=== PATIENT | female | born 1955 | race Caucasian/White ===

== ENCOUNTER 2021-01-15 17:48 | Inpatient (IN) | payer MEDICARE, OTHER ==
[2021-01-15] MEDS ORDERED: Sodium Chloride 0.9% 10 ML Syringe FLUSH PRN (18:15)
[2021-01-15] MEDS ORDERED: Sodium Chloride 0.9% 2.5 ML Syringe FLUSH PRN (18:15)
[2021-01-15] MEDS ORDERED: Sodium Chloride 0.9% 1,000 ML IV ONE (18:15)
--- NOTE | 2021-01-15 18:26 | EDM.PDOC ---
<Rhett Earl - Last Filed: 01/15/21 18:26> ED HPI GENERAL MEDICAL PROBLEM - General Chief Complaint: Respiratory Problem Stated Complaint: POSSIBLE COVID Time Seen by Provider: 01/15/21 18:07 - Related Data Allergies Allergy/AdvReac Type Severity Reaction Status Date / Time No Known Allergies Allergy Verified 09/13/15 09:13 Departure - Departure Disposition: Refer to Observation Clinical Impression: COVID-19 virus infection, Hypoxia, Hypocalcemia - Discharge Information Referrals: Tj Garcia MD [Primary Care Provider] - Forms: ED Department Discharge <Cecily Kaur - Last Filed: 01/15/21 20:09> ED HPI GENERAL MEDICAL PROBLEM - General Source of Information: Reports: Patient, Family History Limitations: Reports: No Limitations - History of Present Illness INITIAL COMMENTS - FREE TEXT/NARRATIVE: HISTORY AND PHYSICAL: History of present illness: Patient is a 65-year-old female presenting to the ED with her daughter with complaints of fatigue and intermittent cough that has been present x3 days. Patient states that she has a home SPO2 monitor that read an SPO2 of 80% which prompted her to come to the ED. Patient states that for 3 days she has experienced muscle aches, fatigue, decreased appetite, malaise, fever/chills, dizziness, dry throat and mouth, and intermittent cough. Patient states she has taken multiple doses of ibuprofen for her fever and body aches with mild reduction of symptoms. Patient denies any other effective palliative measures or any other provocative measures. Patient states her fever got up to 104.0F at home but states "I do not trust my thermometer at home because it is old." Patient does report one ill contact she last saw 1 week ago today who had similar upper respiratory symptoms. Patient denies chest pain or shortness of breath. Denies headache, neck stiff ness, change in vision, syncope, or near syncope. Denies nausea, vomiting, abdominal pain, diarrhea, constipation, or dysuria. Has not noted any blood in urine or stool. Patient has been drinking appropriately. Review of systems: As per history of present illness and below otherwise all systems reviewed and negative. Past medical history: As per history of present illness and as reviewed below otherwise noncontributory. Surgical history: As per history of present illness and as reviewed below otherwise noncontributory. Social history: See social history for further information Family history: As per history of present illness and as reviewed below otherwise noncontributory. Physical exam: General: Patient is alert, oriented, and in no acute distress. Patient lying comfortably on exam table. Hypoxic 88% on RA, otherwise vitals stable and reviewed by me. HEENT: Atraumatic, normocephalic, pupils equal and reactive bilaterally, negative for conjunctival pallor or scleral icterus, mucous membranes moist, TMs normal bilaterally, throat clear, neck supple, nontender, trachea midline. No drooling or trismus noted. No meningeal signs. No hot potato voice noted. Lungs: Clear to auscultation, breath sounds equal bilaterally, chest nontender. Heart: S1S2, regular rate and rhythm without overt murmur Abdomen: Soft, nondistended, nontender. Negative for masses or hepatosplenomegaly. Negative for costovertebral tenderness. Pelvis: Stable nontender. Genitourinary: Deferred. Rectal: Deferred. Skin: Intact, warm, dry. No lesions or rashes noted. Extremities: Atraumatic, negative for cords or calf pain. Neurovascular unremarkable. Neuro: Awake, alert, oriented. Cranial nerves II through XII unremarkable. Cerebellum unremarkable. Motor and sensory unremarkable throughout. Exam nonfocal. Notes: On arrival to the ED, patient is breathing comfortably with oxygen is 88% on room air. Patient placed on 2 L nasal cannula and satting 94%. Corrected calcium for albumin 7.9 mg/dL (low). I did call and speak to the hospitalist on-call, Dr. García, and thoroughly discussed patient's case. Will admit to observation documents her on telemetry. Voices understanding and is agreeable to plan of care. Denies any further questions or concerns at this time. Diagnostics: EKG, CBC, CMP, UA, lactate, troponin, CXR, COVID/Flu Therapeutics: NS, 2LO2 via NC, Decadron, remdesivir, calcium gluconate Impression: COVID-19 viral infection Hypoxia Hypocalcemia Plan: Admit to observation to Dr. Bonilla on telemetry Definitive disposition and diagnosis as appropriate pending reevaluation and review of above. bodyaches Pain Score (Numeric/FACES): 6 ED ROS GENERAL - Review of Systems Review Of Systems: Comprehensive ROS is negative, except as noted in HPI. ED EXAM, GENERAL - Physical Exam Exam: See Below (see dictation) Course - Vital Signs Last Recorded V/S: Last Vital Signs Temp 100.6 F 01/15/21 17:53 Pulse 78 01/15/21 19:43 Resp 16 01/15/21 19:43 BP 155/78 H 01/15/21 19:43 Pulse Ox 87 L 01/15/21 19:43 - Orders/Labs/Meds Orders: Active Orders 24 hr Category Date Time Status Admission Status [Patient Status] [ADT] Stat ADT 01/15/21 19:57 Active EKG Documentation Completion [RC] STAT Care 01/15/21 18:16 Active BILIRUBIN DIRECT [CHEM] Stat Lab 01/15/21 18:52 Results COMPREHENSIVE METABOLIC PN,CMP [CHEM] Stat Lab 01/15/21 18:52 Results CULTURE BLOOD [BC] Stat Lab 01/15/21 18:19 Received CULTURE BLOOD [BC] Stat Lab 01/15/21 18:52 Received CULTURE URINE [RM] Stat Lab 01/15/21 18:02 Received LIPASE [CHEM] Stat Lab 01/15/21 18:52 Results TROPONIN I [CHEM] Stat Lab 01/15/21 18:52 Results Sodium Chloride 0.9% [Saline Flush] Med 01/15/21 18:15 Active 10 ml FLUSH ASDIRECTED PRN Sodium Chloride 0.9% [Saline Flush] Med 01/15/21 18:15 Active 2.5 ml FLUSH ASDIRECTED PRN Blood Culture x2 Reflex Set [OM.PC] Stat Oth 01/15/21 18:37 Ordered Saline Lock Insert [OM.PC] Stat Oth 01/15/21 18:15 Ordered Medication Orders Sodium Chloride (Sodium Chloride 0.9% 2.5 Ml Syringe) 2.5 ml FLUSH ASDIRECTED PRN PRN Reason: Keep Vein Open Last Admin: 01/15/21 18:58 Dose: 2.5 ml Documented by: LAZARO Sodium Chloride (Sodium Chloride 0.9% 10 Ml Syringe) 10 ml FLUSH ASDIRECTED PRN PRN Reason: Keep Vein Open Last Admin: 01/15/21 18:58 Dose: 10 ml Documented by: LAZARO Labs: Laboratory Tests 01/15/21 01/15/21 01/15/21 Range/Units 18:02 18:19 18:19 WBC 3.55 L (4.0-11.0) K/uL RBC 4.70 (4.30-5.90) M/uL Hgb 14.1 (12.0-16.0) g/dL Hct 41.3 (36.0-46.0) % MCV 87.9 (80.0-98.0) fL MCH 30.0 (27.0-32.0) pg MCHC 34.1 (31.0-37.0) g/dL RDW Std Deviation 46.7 (28.0-62.0) fl RDW Coeff of Ian 14 (11.0-15.0) % Plt Count 177 (150-400) K/uL MPV 11.30 (7.40-12.00) fL Neut % (Auto) 63.6 (48.0-80.0) % Lymph % (Auto) 20.6 (16.0-40.0) % [place] % (Auto) 14.9 (0.0-15.0) % Eos % (Auto) 0.6 (0.0-7.0) % Baso % (Auto) 0.3 (0.0-1.5) % Neut # (Auto) 2.3 (1.4-5.7) K/uL Lymph # (Auto) 0.7 (0.6-2.4) K/uL [place] # (Auto) 0.5 (0.0-0.8) K/uL Eos # (Auto) 0.0 (0.0-0.7) K/uL Baso # (Auto) 0.0 (0.0-0.1) K/uL Nucleated RBC % 0.0 /100WBC Nucleated RBCs # 0 K/uL Lactate 0.8 (0.20-2.00) mmol/L Sodium (136-145) mmol/L Potassium (3.5-5.1) mmol/L Chloride (98-107) mmol/L Carbon Dioxide (21.0-32.0) mmol/L BUN (7.0-18.0) mg/dL Creatinine (0.6-1.0) mg/dL Est Cr Clr Drug Dosing mL/min Estimated GFR (MDRD) ml/min Glucose (74-106) mg/dL Calcium (8.5-10.1) mg/dL Magnesium (1.8-2.4) mg/dL Total Bilirubin (0.2-1.0) mg/dL AST (15-37) IU/L ALT (14-63) IU/L Alkaline Phosphatase (46-116) U/L Troponin I (0.000-0.056) ng/mL Total Protein (6.4-8.2) g/dL Albumin (3.4-5.0) g/dL Globulin (2.6-4.0) g/dL Albumin/Globulin Ratio (0.9-1.6) Lipase (73-393) U/L Urine Color YELLOW Urine Appearance SLT CLOUDY Urine pH 5.5 (5.0-8.0) Ur Specific [place] 1.020 (1.001-1.035) Urine Protein TRACE H (NEGATIVE) mg/dL Urine Glucose (UA) NEGATIVE (NEGATIVE) mg/dL Urine Ketones NEGATIVE (NEGATIVE) mg/dL Urine Occult Blood MODERATE H (NEGATIVE) Urine Nitrite NEGATIVE (NEGATIVE) Urine Bilirubin NEGATIVE (NEGATIVE) Urine Urobilinogen 0.2 (<2.0) EU/dL Ur Leukocyte Esterase TRACE H (NEGATIVE) Urine RBC 2-4 (0-2/HPF) Urine WBC 1-3 (0-5/HPF) Ur Epithelial Cells MANY (NONE-FEW) Urine Bacteria RARE (NEGATIVE) Influenza Type A RNA (NEGATIVE) Influenza Type B RNA (NEGATIVE) SARS-CoV-2 RNA (JANET) (NEGATIVE) 01/15/21 01/15/21 01/15/21 Range/Units 18:52 18:52 18:53 WBC (4.0-11.0) K/uL RBC (4.30-5.90) M/uL Hgb (12.0-16.0) g/dL Hct (36.0-46.0) % MCV (80.0-98.0) fL MCH (27.0-32.0) pg MCHC (31.0-37.0) g/dL RDW Std Deviation (28.0-62.0) fl RDW Coeff of Ian (11.0-15.0) % Plt Count (150-400) K/uL MPV (7.40-12.00) fL Neut % (Auto) (48.0-80.0) % Lymph % (Auto) (16.0-40.0) % [place] % (Auto) (0.0-15.0) % Eos % (Auto) (0.0-7.0) % Baso % (Auto) (0.0-1.5) % Neut # (Auto) (1.4-5.7) K/uL Lymph # (Auto) (0.6-2.4) K/uL [place] # (Auto) (0.0-0.8) K/uL Eos # (Auto) (0.0-0.7) K/uL Baso # (Auto) (0.0-0.1) K/uL Nucleated RBC % /100WBC Nucleated RBCs # K/uL Lactate (0.20-2.00) mmol/L Sodium 137 (136-145) mmol/L Potassium 3.4 L (3.5-5.1) mmol/L Chloride 100 (98-107) mmol/L Carbon Dioxide 27.0 (21.0-32.0) mmol/L BUN 16 (7.0-18.0) mg/dL Creatinine 0.7 (0.6-1.0) mg/dL Est Cr Clr Drug Dosing 78.67 mL/min Estimated GFR (MDRD) > 60.0 ml/min Glucose 110 H (74-106) mg/dL Calcium 7.7 L (8.5-10.1) mg/dL Magnesium 1.4 L (1.8-2.4) mg/dL Total Bilirubin 0.3 (0.2-1.0) mg/dL AST 22 (15-37) IU/L ALT 31 (14-63) IU/L Alkaline Phosphatase 70 (46-116) U/L Troponin I < 0.050 (0.000-0.056) ng/mL Total Protein 6.8 (6.4-8.2) g/dL Albumin 3.1 L (3.4-5.0) g/dL Globulin 3.7 (2.6-4.0) g/dL Albumin/Globulin Ratio 0.8 L (0.9-1.6) Lipase 107 (73-393) U/L Urine Color Urine Appearance Urine pH (5.0-8.0) Ur Specific [place] (1.001-1.035) Urine Protein (NEGATIVE) mg/dL Urine Glucose (UA) (NEGATIVE) mg/dL Urine Ketones (NEGATIVE) mg/dL Urine Occult Blood (NEGATIVE) Urine Nitrite (NEGATIVE) Urine Bilirubin (NEGATIVE) Urine Urobilinogen (<2.0) EU/dL Ur Leukocyte Esterase (NEGATIVE) Urine RBC (0-2/HPF) Urine WBC (0-5/HPF) Ur Epithelial Cells (NONE-FEW) Urine Bacteria (NEGATIVE) Influenza Type A RNA NEGATIVE (NEGATIVE) Influenza Type B RNA NEGATIVE (NEGATIVE) SARS-CoV-2 RNA (JANET) POSITIVE H (NEGATIVE) Meds: Medications Generic Name Dose Route Start Last Admin Trade Name Freq PRN Reason Stop Dose Admin Sodium Chloride 2.5 ml 01/15/21 18:15 01/15/21 18:58 Sodium Chloride 0.9% 2.5 Ml Syringe FLUSH 2.5 ml ASDIRECTED PRN Administration Keep Vein Open Sodium Chloride 10 ml 01/15/21 18:15 01/15/21 18:58 Sodium Chloride 0.9% 10 Ml Syringe FLUSH 10 ml ASDIRECTED PRN Administration Keep Vein Open Discontinued Medications Generic Name Dose Route Start Last Admin Trade Name Freq PRN Reason Stop Dose Admin Acetaminophen 650 mg 01/15/21 18:52 01/15/21 19:34 Acetaminophen 325 Mg Tab PO 01/15/21 18:53 650 mg NOW ONE Administration Calcium Gluconate 1 gm 01/15/21 19:41 Calcium Gluconate 10% 1 Gm/10 Ml Sdv IVPUSH 01/15/21 19:42 ONETIME ONE Dexamethasone 6 mg 01/15/21 19:42 Dexamethasone 10 Mg/Ml Sdv IVPUSH 01/15/21 19:43 ONETIME ONE Sodium Chloride 1,000 mls @ 999 mls/hr 01/15/21 18:15 01/15/21 18:56 Normal Saline IV 01/15/21 19:15 999 mls/hr BOLUS ONE Administration Remdesivir 200 mg/ Sodium 250 mls @ 250 mls/hr 01/15/21 19:53 Chloride IV 01/15/21 19:54 ONETIME ONE Ketorolac Tromethamine 30 mg 01/15/21 18:49 01/15/21 19:35 Ketorolac 30 Mg/Ml Sdv IVPUSH 01/15/21 18:50 30 mg ONETIME ONE Administration Departure - Departure Time of Disposition: 20:07 Sepsis Event Note (ED) - Focused Exam Vital Signs: Vital Signs Temp Pulse Resp BP Pulse Ox 01/15/21 19:43 78 16 155/78 H 87 L 01/15/21 17:53 100.6 F 96 22 H 159/99 H 92 L - My Orders Last 24 Hours: My Active Orders 01/15/21 18:02 CULTURE URINE [RM] Stat 01/15/21 18:15 Sodium Chloride 0.9% [Saline Flush] 10 ml FLUSH ASDIRECTED PRN Sodium Chloride 0.9% [Saline Flush] 2.5 ml FLUSH ASDIRECTED PRN Saline Lock Insert [OM.PC] Stat 01/15/21 18:16 EKG Documentation Completion [RC] STAT 01/15/21 18:19 CULTURE BLOOD [BC] Stat 01/15/21 18:37 Blood Culture x2 Reflex Set [OM.PC] Stat 01/15/21 18:52 BILIRUBIN DIRECT [CHEM] Stat COMPREHENSIVE METABOLIC PN,CMP [CHEM] Stat CULTURE BLOOD [BC] Stat LIPASE [CHEM] Stat TROPONIN I [CHEM] Stat 01/15/21 19:57 Admission Status [Patient Status] [ADT] Stat - Assessment/Plan Last 24 Hours: My Active Orders 01/15/21 18:02 CULTURE URINE [RM] Stat 01/15/21 18:15 Sodium Chloride 0.9% [Saline Flush] 10 ml FLUSH ASDIRECTED PRN Sodium Chloride 0.9% [Saline Flush] 2.5 ml FLUSH ASDIRECTED PRN Saline Lock Insert [OM.PC] Stat 01/15/21 18:16 EKG Documentation Completion [RC] STAT 01/15/21 18:19 CULTURE BLOOD [BC] Stat 01/15/21 18:37 Blood Culture x2 Reflex Set [OM.PC] Stat 01/15/21 18:52 BILIRUBIN DIRECT [CHEM] Stat COMPREHENSIVE METABOLIC PN,CMP [CHEM] Stat CULTURE BLOOD [BC] Stat LIPASE [CHEM] Stat TROPONIN I [CHEM] Stat 01/15/21 19:57 Admission Status [Patient Status] [ADT] Stat
--- NOTE | 2021-01-15 18:29 | PCM.SN.2 ---
- Free Text/Narrative Note: EG done at 1759 shows sinus rhythm with heart rate 91 axis is 36 QRS shows are wave does not appear until after V2 and V1 and V2 have a Q's. There is some ST changes in the lateral leads. That there is no prior for comparison. 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
[2021-01-15] MEDS ORDERED: Ketorolac 30 MG/ML SDV IVPUSH ONE (18:49)
[2021-01-15] MEDS ORDERED: Acetaminophen 325 MG Tab PO ONE (18:52)
--- NOTE | 2021-01-15 18:59 | CR ---
INDICATION: Wheezing. Chest pain. TECHNIQUE: AP portable chest x-ray. COMPARISON: Chest x-ray 09/09/2015. FINDINGS: Mild opacity and/or interstitial prominence in the right mid lung is new. Cannot exclude early developing inflammatory process in this location. Lungs are otherwise clear. Mild elevation right hemidiaphragm. Heart size is upper limits of normal. Postsurgical changes right shoulder. Chest otherwise negative. Dictated by Krishna Dutton MD @ Jan 15 2021 6:57PM Signed by Dr. Krishna Dutton @ Jan 15 2021 6:57PM
[2021-01-15 19:23] LABS: BLOOD UREA NITROGEN,BUN 16 mg/dL (7.0-18.0); CHLORIDE,CL 100 mmol/L (98-107); GLUCOSE RANDOM 110 mg/dL (74-106); LIPASE 107 U/L (73-393); POTASSIUM,K 3.4 mmol/L (3.5-5.1); SODIUM,NA 137 mmol/L (136-145)
[2021-01-15 19:37] LABS: CORONAVIRUS COVID-19 NAA POSITIVE (NEGATIVE); INFLUENZA A NAA NEGATIVE (NEGATIVE); INFLUENZA B NAA NEGATIVE (NEGATIVE)
[2021-01-15] MEDS ORDERED: Calcium Gluconate 10% 1 GM/10 ML SDV IVPUSH ONE (19:41)
[2021-01-15] MEDS ORDERED: Dexamethasone 10 MG/ML SDV IVPUSH ONE (19:42)
[2021-01-15] MEDS ORDERED: REMDESIVIR 200 MG in Sodium Chloride 0.9% 250 ML IV ONE (19:53)
[2021-01-15] MEDS ORDERED: Acetaminophen 325 MG Tab PO PRN (20:27)
[2021-01-15] MEDS ORDERED: Ondansetron 4 MG/2 ML SDV IVPUSH PRN (20:27)
--- NOTE | 2021-01-15 22:11 | PCM.HP.2 ---
H&P History of Present Illness - General Date of Service: 01/15/21 Admit Problem/Dx: Admission Diagnosis/Problem Admission Diagnosis/Problem Hypoxia - History of Present Illness Initial Comments - Free Text/Narative: Patient is a 65-year-old female with PMH of HTN, fibromuscular dysplasia of renal vessels, presenting to the ED with her daughter with complaints of fatigue and intermittent cough that has been present x3 days. Patient states that her daughter checked her oxygen levels at home with pulse oxygen as she was unable to get out of bed today , her oxygen saturation was 80% which prompted her to come to the ED. Patient states that for 3 days she has experienced muscle aches, fatigue, decreased appetite, malaise, fever/chills, dizziness, dry throat and mouth, and intermittent cough. Patient states she has taken multiple doses of ibuprofen for her fever and body aches with mild reduction of symptoms. States she did spike a fever at home. Patient states she thinks she contracted COVID from her daughter who has lost her sense of smell and taste. Patient denies chest pain or shortness of breath. Denies headache, neck stiff ness, change in vision, syncope, or near syncope. Denies nausea, vomiting, abdominal pain, diarrhea, constipation, or dysuria. Has not noted any blood in urine or stool. Patient has been drinking appropriately. States she missed taking her meds today. In the ER patient was hypoxixic in 80s so was started on NC 2Ls. CXR showed mild opacity in right middle lung, labs showed some electrolyte disturbances, EKG unremarkable for ACS, showed some old ischemic changes, Troponin negative, COVID was positive as well. Patient was admitted for further management. bodyaches Pain Score (Numeric/FACES): 6 - Related Data Allergies/Adverse Reactions: Allergies Allergy/AdvReac Type Severity Reaction Status Date / Time No Known Allergies Allergy Verified 01/15/21 21:41 Home Medications: Home Meds Metoprolol Tartrate 100 mg PO BID 01/15/21 [History] PARoxetine HCL [Paroxetine HCl] 10 mg PO DAILY 01/15/21 [History] Zolpidem Tartrate 10 mg PO BEDTIME 01/15/21 [History] amLODIPine Besylate [Amlodipine Besylate] 5 mg PO DAILY 01/15/21 [History] hydroCHLOROthiazide [Hydrochlorothiazide] 1 tab PO DAILY 01/15/21 [History] Past Medical History Cardiovascular History: Reports: Hypertension MEDICAL PHYSIOLOGIST History: Reports: - Past Surgical History Cardiovascular Surgical History: Reports: None Social & Family History - Family History Family Medical History: No Pertinent Family History - Tobacco Use Tobacco Use Status *Q: Never Tobacco User Second Hand Smoke Exposure: No - Caffeine Use Caffeine Use: Reports: None - Recreational Drug Use Recreational Drug Use: No H&P Review of Systems - Review of Systems: Review Of Systems: See Below General: Reports: Fever, Chills, Malaise Pulmonary: Denies: Shortness of Breath, Wheezing Cardiovascular: Denies: Chest Pain, Palpitations Gastrointestinal: Reports: Anorexia. Denies: Abdominal Pain, Black Stool, Bloody Stool, Constipation, Diarrhea, Distension Genitourinary: Denies: Dysuria, Frequency, Burning Musculoskeletal: Denies: Neck Pain, Shoulder Pain, Arm Pain Skin: Denies: Cyanosis, Jaundice, Mottled Psychiatric: Denies: Confusion, Depression, Mood Lability Exam - Exam Exam: See Below - Vital Signs Vital Signs: Last Vital Signs Temp 36.1 C 01/15/21 22:00 Pulse 81 01/15/21 22:00 Resp 18 01/15/21 22:00 BP 145/78 H 01/15/21 22:00 Pulse Ox 94 L 01/15/21 22:00 Weight: 110 kg - Exam Quality Assessment: Supplemental Oxygen General: Alert, Oriented, Cooperative, Mild Distress Neck: Supple, Trachea Midline Lungs: Normal Respiratory Effort, Decreased Breath Sounds, Crackles Cardiovascular: Regular Rate, Regular Rhythm, Normal S1, Normal S2 - Patient Data Lab Results Last 24 hrs: Laboratory Results - last 24 hr 01/15/21 01/15/21 01/15/21 Range/Units 18:02 18:19 18:19 WBC 3.55 L (4.0-11.0) K/uL RBC 4.70 (4.30-5.90) M/uL Hgb 14.1 (12.0-16.0) g/dL Hct 41.3 (36.0-46.0) % MCV 87.9 (80.0-98.0) fL MCH 30.0 (27.0-32.0) pg MCHC 34.1 (31.0-37.0) g/dL RDW Std Deviation 46.7 (28.0-62.0) fl RDW Coeff of Ian 14 (11.0-15.0) % Plt Count 177 (150-400) K/uL MPV 11.30 (7.40-12.00) fL Neut % (Auto) 63.6 (48.0-80.0) % Lymph % (Auto) 20.6 (16.0-40.0) % [place] % (Auto) 14.9 (0.0-15.0) % Eos % (Auto) 0.6 (0.0-7.0) % Baso % (Auto) 0.3 (0.0-1.5) % Neut # (Auto) 2.3 (1.4-5.7) K/uL Lymph # (Auto) 0.7 (0.6-2.4) K/uL [place] # (Auto) 0.5 (0.0-0.8) K/uL Eos # (Auto) 0.0 (0.0-0.7) K/uL Baso # (Auto) 0.0 (0.0-0.1) K/uL Nucleated RBC % 0.0 /100WBC Nucleated RBCs # 0 K/uL Lactate 0.8 (0.20-2.00) mmol/L Sodium (136-145) mmol/L Potassium (3.5-5.1) mmol/L Chloride (98-107) mmol/L Carbon Dioxide (21.0-32.0) mmol/L BUN (7.0-18.0) mg/dL Creatinine (0.6-1.0) mg/dL Est Cr Clr Drug Dosing mL/min Estimated GFR (MDRD) ml/min Glucose (74-106) mg/dL Calcium (8.5-10.1) mg/dL Magnesium (1.8-2.4) mg/dL Total Bilirubin (0.2-1.0) mg/dL Direct Bilirubin (0.0-0.5) mg/dL AST (15-37) IU/L ALT (14-63) IU/L Alkaline Phosphatase (46-116) U/L Troponin I (0.000-0.056) ng/mL Total Protein (6.4-8.2) g/dL Albumin (3.4-5.0) g/dL Globulin (2.6-4.0) g/dL Albumin/Globulin Ratio (0.9-1.6) Lipase (73-393) U/L Urine Color YELLOW Urine Appearance SLT CLOUDY Urine pH 5.5 (5.0-8.0) Ur Specific [place] 1.020 (1.001-1.035) Urine Protein TRACE H (NEGATIVE) mg/dL Urine Glucose (UA) NEGATIVE (NEGATIVE) mg/dL Urine Ketones NEGATIVE (NEGATIVE) mg/dL Urine Occult Blood MODERATE H (NEGATIVE) Urine Nitrite NEGATIVE (NEGATIVE) Urine Bilirubin NEGATIVE (NEGATIVE) Urine Urobilinogen 0.2 (<2.0) EU/dL Ur Leukocyte Esterase TRACE H (NEGATIVE) Urine RBC 2-4 (0-2/HPF) Urine WBC 1-3 (0-5/HPF) Ur Epithelial Cells MANY (NONE-FEW) Urine Bacteria RARE (NEGATIVE) Influenza Type A RNA (NEGATIVE) Influenza Type B RNA (NEGATIVE) SARS-CoV-2 RNA (JANET) (NEGATIVE) 01/15/21 01/15/21 01/15/21 Range/Units 18:52 18:52 18:53 WBC (4.0-11.0) K/uL RBC (4.30-5.90) M/uL Hgb (12.0-16.0) g/dL Hct (36.0-46.0) % MCV (80.0-98.0) fL MCH (27.0-32.0) pg MCHC (31.0-37.0) g/dL RDW Std Deviation (28.0-62.0) fl RDW Coeff of Ian (11.0-15.0) % Plt Count (150-400) K/uL MPV (7.40-12.00) fL Neut % (Auto) (48.0-80.0) % Lymph % (Auto) (16.0-40.0) % [place] % (Auto) (0.0-15.0) % Eos % (Auto) (0.0-7.0) % Baso % (Auto) (0.0-1.5) % Neut # (Auto) (1.4-5.7) K/uL Lymph # (Auto) (0.6-2.4) K/uL [place] # (Auto) (0.0-0.8) K/uL Eos # (Auto) (0.0-0.7) K/uL Baso # (Auto) (0.0-0.1) K/uL Nucleated RBC % /100WBC Nucleated RBCs # K/uL Lactate (0.20-2.00) mmol/L Sodium 137 (136-145) mmol/L Potassium 3.4 L (3.5-5.1) mmol/L Chloride 100 (98-107) mmol/L Carbon Dioxide 27.0 (21.0-32.0) mmol/L BUN 16 (7.0-18.0) mg/dL Creatinine 0.7 (0.6-1.0) mg/dL Est Cr Clr Drug Dosing 78.67 mL/min Estimated GFR (MDRD) > 60.0 ml/min Glucose 110 H (74-106) mg/dL Calcium 7.7 L (8.5-10.1) mg/dL Magnesium 1.4 L (1.8-2.4) mg/dL Total Bilirubin 0.3 (0.2-1.0) mg/dL Direct Bilirubin 0.10 (0.0-0.5) mg/dL AST 22 (15-37) IU/L ALT 31 (14-63) IU/L Alkaline Phosphatase 70 (46-116) U/L Troponin I < 0.050 (0.000-0.056) ng/mL Total Protein 6.8 (6.4-8.2) g/dL Albumin 3.1 L (3.4-5.0) g/dL Globulin 3.7 (2.6-4.0) g/dL Albumin/Globulin Ratio 0.8 L (0.9-1.6) Lipase 107 (73-393) U/L Urine Color Urine Appearance Urine pH (5.0-8.0) Ur Specific [place] (1.001-1.035) Urine Protein (NEGATIVE) mg/dL Urine Glucose (UA) (NEGATIVE) mg/dL Urine Ketones (NEGATIVE) mg/dL Urine Occult Blood (NEGATIVE) Urine Nitrite (NEGATIVE) Urine Bilirubin (NEGATIVE) Urine Urobilinogen (<2.0) EU/dL Ur Leukocyte Esterase (NEGATIVE) Urine RBC (0-2/HPF) Urine WBC (0-5/HPF) Ur Epithelial Cells (NONE-FEW) Urine Bacteria (NEGATIVE) Influenza Type A RNA NEGATIVE (NEGATIVE) Influenza Type B RNA NEGATIVE (NEGATIVE) SARS-CoV-2 RNA (JANET) POSITIVE H (NEGATIVE) Result Diagrams: 01/15/21 18:19 01/15/21 18:52 Sepsis Event Note - Evaluation Sepsis Screening Result: No Definite Risk - Focused Exam Vital Signs: Vital Signs Temp Pulse Resp BP BP Pulse Ox 01/15/21 22:00 36.1 C 81 18 145/78 H 94 L 01/15/21 19:43 78 16 155/78 H 87 L 01/15/21 17:53 38.1 C 96 22 H 159/99 H 92 L - Problem List (1) Acute hypoxemic respiratory failure due to COVID-19 SNOMED Code(s): 887778419 ICD Code: U07.1 - COVID-19; J96.01 - ACUTE RESPIRATORY FAILURE WITH HYPOXIA Status: Acute Current Visit: Yes (2) HTN (hypertension) SNOMED Code(s): 38525944 ICD Code: I10 - ESSENTIAL (PRIMARY) HYPERTENSION Status: Acute Current Visit: Yes (3) Hypokalemia SNOMED Code(s): 85346557 ICD Code: E87.6 - HYPOKALEMIA Status: Acute Current Visit: Yes (4) Hypomagnesemia SNOMED Code(s): 040515527 ICD Code: E83.42 - HYPOMAGNESEMIA Status: Acute Current Visit: Yes Problem List Initiated/Reviewed/Updated: Yes Orders Last 24hrs: Active Orders 24 hr Category Date Time Status Admission Status [Patient Status] [ADT] Stat ADT 01/15/21 19:57 Active Ambulate [RC] ASDIRECTED Care 01/15/21 20:27 Active Antiembolic Devices [RC] PER UNIT ROUTINE Care 01/15/21 20:29 Active EKG Documentation Completion [RC] STAT Care 01/15/21 18:16 Active Oxygen Therapy [RC] PRN Care 01/15/21 20:27 Active Pulse Oximetry [RC] CONTINUOUS Care 01/15/21 20:28 Active RT Post Treatment Assessment [RC] Click to Edit Care 01/15/21 20:30 Active RT Pre-Treatment Assessment [RC] Click to Edit Care 01/15/21 20:30 Active VTE/DVT Education [RC] PER UNIT ROUTINE Care 01/15/21 20:27 Active Vital Signs [RC] Q4H Care 01/15/21 20:27 Active Clear Liquid Diet [DIET] Diet 01/15/21 Dinner Active COMPREHENSIVE METABOLIC PN,CMP [CHEM] AM Lab 01/16/21 05:11 Ordered COMPREHENSIVE METABOLIC PN,CMP [CHEM] AM Lab 01/17/21 05:11 Ordered COMPREHENSIVE METABOLIC PN,CMP [CHEM] AM Lab 01/18/21 05:11 Ordered COMPREHENSIVE METABOLIC PN,CMP [CHEM] AM Lab 01/19/21 05:11 Ordered CULTURE BLOOD [BC] Stat Lab 01/15/21 18:19 Received CULTURE BLOOD [BC] Stat Lab 01/15/21 18:52 Received CULTURE URINE [RM] Stat Lab 01/15/21 18:02 Received Acetaminophen [TylenoL] Med 01/15/21 20:27 Active 650 mg PO Q4H PRN Albuterol/Ipratropium [Combivent Respimat] Med 01/15/21 20:30 Active See Dose Instructions INH Q4H Enoxaparin [Lovenox] Med 01/15/21 20:30 Active 40 mg SUBCUT Q24H Levofloxacin/Dextrose 5%-Water [Levaquin in D5W 750 MG/ Med 01/15/21 20:45 Active 150 ML] 750 mg Premix Bag 1 bag IV Q24H Ondansetron [Zofran] Med 01/15/21 20:27 Active 4 mg IVPUSH Q4H PRN Pantoprazole [ProTONIX IV] 40 mg Med 01/16/21 09:00 Active Sodium Chloride 0.9% [Normal Saline] 10 ml IV DAILY Remdesivir 100 mg Med 01/16/21 09:00 Active Sodium Chloride 0.9% [Normal Saline] 100 ml IV Q24H Sodium Chloride 0.9% [Saline Flush] Med 01/15/21 18:15 Active 10 ml FLUSH ASDIRECTED PRN Sodium Chloride 0.9% [Saline Flush] Med 01/15/21 18:15 Active 2.5 ml FLUSH ASDIRECTED PRN dexAMETHasone Med 01/16/21 09:00 Active 6 mg PO DAILY Blood Culture x2 Reflex Set [OM.PC] Stat Oth 01/15/21 18:37 Ordered Saline Lock Insert [OM.PC] Stat Oth 01/15/21 18:15 Ordered Sequential Compression Device [OM.PC] Per Unit Routine Oth 01/15/21 20:28 Ordered Medication Orders Acetaminophen (Acetaminophen 325 Mg Tab) 650 mg PO Q4H PRN PRN Reason: Pain (Mild 1-3)/fever Albuterol/Ipratropium (Albuterol/Ipratropium 4 Gm Inhalation [place]) 0 gm INH Q4H KEITH Dexamethasone (Dexamethasone 4 Mg Tab) 6 mg PO DAILY KEITH Enoxaparin Sodium (Enoxaparin 40 Mg/0.4 Ml Syringe) 40 mg SUBCUT Q24H KEITH Remdesivir 100 mg/ Sodium (Chloride) 100 mls @ 100 mls/hr IV Q24H KEITH Stop: 01/19/21 09:59 Pantoprazole Sodium 40 mg/ (Sodium Chloride) 10 mls @ 300 mls/hr IV DAILY KEITH Levofloxacin/Dextrose 750 mg/ (Premix) 150 mls @ 100 mls/hr IV Q24H KEITH Ondansetron HCl (Ondansetron 4 Mg/2 Ml Sdv) 4 mg IVPUSH Q4H PRN PRN Reason: Nausea/Vomiting Sodium Chloride (Sodium Chloride 0.9% 2.5 Ml Syringe) 2.5 ml FLUSH ASDIRECTED PRN PRN Reason: Keep Vein Open Last Admin: 01/15/21 18:58 Dose: 2.5 ml Documented by: LAZARO Sodium Chloride (Sodium Chloride 0.9% 10 Ml Syringe) 10 ml FLUSH ASDIRECTED PRN PRN Reason: Keep Vein Open Last Admin: 01/15/21 18:58 Dose: 10 ml Documented by: LAZARO Assessment/Plan Comment:: 65 y/o F admitted for hypoxic respiratory failure secondary to COVID19 cont oxygenation via NC start Remdesivir, start PO dexamethasone start SUbQ Lovenox Levaquin IV 750 mg daily for possible underlying bacterial PNA Monitor and replete electrolytes cont home meds as appropriate
[2021-01-15] MEDS: Levofloxacin/Dextrose 5%-Water 750 MG in Premix Bag 1 BAG IV SCH (22:16)
[2021-01-15] MEDS ORDERED: Magnesium Sulfate/Water 2 GM/50 ML BAG IV ONE (22:23)
[2021-01-15] MEDS ORDERED: Potassium Chloride 20 MEQ Tab.ER PO ONE (22:23)
[2021-01-15] MEDS: Albuterol/Ipratropium 4 GM Inhalation Spray INH SCH ×2 (22:24→23:39)
[2021-01-15] MEDS: Enoxaparin 40 MG/0.4 ML Syringe SUBCUT SCH (22:24)
[2021-01-15] MEDS: Metoprolol Tartrate 50 MG Tab PO SCH (23:38)
[2021-01-15] MEDS: amLODIPine 5 MG Tab PO SCH (23:38)
[2021-01-16] MEDS: Albuterol/Ipratropium 4 GM Inhalation Spray INH SCH ×2 (04:07→08:22)
[2021-01-16 06:21] LABS: BLOOD UREA NITROGEN,BUN 14 mg/dL (7.0-18.0); CARBON DIOXIDE,CO2 29.3 mmol/L (21.0-32.0); CHLORIDE,CL 104 mmol/L (98-107); GLUCOSE RANDOM 149 mg/dL (74-106); POTASSIUM,K 4.4 mmol/L (3.5-5.1); SODIUM,NA 139 mmol/L (136-145)
--- NOTE | 2021-01-16 07:56 | PCM.PN ---
- General Info Date of Service: 01/16/21 Admission Dx/Problem (Free Text): Admission Diagnosis/Problem Admission Diagnosis/Problem Hypoxia Subjective Update: Doing better this morning, reports SOB with ambulation. Coughing with IS use. Hungry, no nausea or diarrhea. No other concerns. Reports her mouth is pretty dry from Combivent will decrease to as needed. Functional Status: Reports: Pain Controlled, Tolerating Diet, Ambulating, Urinat ing - Review of Systems General: Reports: Weakness (The last), Malaise HEENT: Reports: No Symptoms. Denies: Headaches, Sore Throat, Visual Changes Pulmonary: Reports: No Symptoms. Denies: Shortness of Breath Cardiovascular: Reports: No Symptoms. Denies: Chest Pain, Edema Gastrointestinal: Reports: No Symptoms. Denies: Abdominal Pain, Nausea, Vomiting Genitourinary: Reports: No Symptoms Musculoskeletal: Reports: No Symptoms Skin: Reports: No Symptoms Neurological: Reports: No Symptoms Psychiatric: Reports: No Symptoms - Patient Data Vitals - Most Recent: Last Vital Signs Temp 96.9 F 01/16/21 04:08 Pulse 60 01/16/21 04:08 Resp 18 01/16/21 04:08 BP 130/70 01/16/21 04:08 Pulse Ox 94 L 01/16/21 04:08 Weight - Most Recent: 112.582 kg I&O - Last 24 Hours: Intake & Output 01/15/21 01/16/21 01/16/21 22:59 06:59 14:59 Intake Total 200 Output Total 900 Balance -700 Lab Results Last 24 Hours: Laboratory Results - last 24 hr 01/15/21 01/15/21 01/15/21 Range/Units 18:02 18:19 18:19 WBC 3.55 L (4.0-11.0) K/uL RBC 4.70 (4.30-5.90) M/uL Hgb 14.1 (12.0-16.0) g/dL Hct 41.3 (36.0-46.0) % MCV 87.9 (80.0-98.0) fL MCH 30.0 (27.0-32.0) pg MCHC 34.1 (31.0-37.0) g/dL RDW Std Deviation 46.7 (28.0-62.0) fl RDW Coeff of Ian 14 (11.0-15.0) % Plt Count 177 (150-400) K/uL MPV 11.30 (7.40-12.00) fL Neut % (Auto) 63.6 (48.0-80.0) % Lymph % (Auto) 20.6 (16.0-40.0) % [place] % (Auto) 14.9 (0.0-15.0) % Eos % (Auto) 0.6 (0.0-7.0) % Baso % (Auto) 0.3 (0.0-1.5) % Neut # (Auto) 2.3 (1.4-5.7) K/uL Lymph # (Auto) 0.7 (0.6-2.4) K/uL [place] # (Auto) 0.5 (0.0-0.8) K/uL Eos # (Auto) 0.0 (0.0-0.7) K/uL Baso # (Auto) 0.0 (0.0-0.1) K/uL Nucleated RBC % 0.0 /100WBC Nucleated RBCs # 0 K/uL Lactate 0.8 (0.20-2.00) mmol/L Sodium (136-145) mmol/L Potassium (3.5-5.1) mmol/L Chloride (98-107) mmol/L Carbon Dioxide (21.0-32.0) mmol/L BUN (7.0-18.0) mg/dL Creatinine (0.6-1.0) mg/dL Est Cr Clr Drug Dosing mL/min Estimated GFR (MDRD) ml/min Glucose (74-106) mg/dL Calcium (8.5-10.1) mg/dL Phosphorus (2.6-4.7) mg/dL Magnesium (1.8-2.4) mg/dL Total Bilirubin (0.2-1.0) mg/dL Direct Bilirubin (0.0-0.5) mg/dL AST (15-37) IU/L ALT (14-63) IU/L Alkaline Phosphatase (46-116) U/L Troponin I (0.000-0.056) ng/mL Total Protein (6.4-8.2) g/dL Albumin (3.4-5.0) g/dL Globulin (2.6-4.0) g/dL Albumin/Globulin Ratio (0.9-1.6) Lipase (73-393) U/L Urine Color YELLOW Urine Appearance SLT CLOUDY Urine pH 5.5 (5.0-8.0) Ur Specific Anderson 1.020 (1.001-1.035) Urine Protein TRACE H (NEGATIVE) mg/dL Urine Glucose (UA) NEGATIVE (NEGATIVE) mg/dL Urine Ketones NEGATIVE (NEGATIVE) mg/dL Urine Occult Blood MODERATE H (NEGATIVE) Urine Nitrite NEGATIVE (NEGATIVE) Urine Bilirubin NEGATIVE (NEGATIVE) Urine Urobilinogen 0.2 (<2.0) EU/dL Ur Leukocyte Esterase TRACE H (NEGATIVE) Urine RBC 2-4 (0-2/HPF) Urine WBC 1-3 (0-5/HPF) Ur Epithelial Cells MANY (NONE-FEW) Urine Bacteria RARE (NEGATIVE) Influenza Type A RNA (NEGATIVE) Influenza Type B RNA (NEGATIVE) SARS-CoV-2 RNA (JANET) (NEGATIVE) 01/15/21 01/15/21 01/15/21 Range/Units 18:52 18:52 18:53 WBC (4.0-11.0) K/uL RBC (4.30-5.90) M/uL Hgb (12.0-16.0) g/dL Hct (36.0-46.0) % MCV (80.0-98.0) fL MCH (27.0-32.0) pg MCHC (31.0-37.0) g/dL RDW Std Deviation (28.0-62.0) fl RDW Coeff of Ian (11.0-15.0) % Plt Count (150-400) K/uL MPV (7.40-12.00) fL Neut % (Auto) (48.0-80.0) % Lymph % (Auto) (16.0-40.0) % [place] % (Auto) (0.0-15.0) % Eos % (Auto) (0.0-7.0) % Baso % (Auto) (0.0-1.5) % Neut # (Auto) (1.4-5.7) K/uL Lymph # (Auto) (0.6-2.4) K/uL [place] # (Auto) (0.0-0.8) K/uL Eos # (Auto) (0.0-0.7) K/uL Baso # (Auto) (0.0-0.1) K/uL Nucleated RBC % /100WBC Nucleated RBCs # K/uL Lactate (0.20-2.00) mmol/L Sodium 137 (136-145) mmol/L Potassium 3.4 L (3.5-5.1) mmol/L Chloride 100 (98-107) mmol/L Carbon Dioxide 27.0 (21.0-32.0) mmol/L BUN 16 (7.0-18.0) mg/dL Creatinine 0.7 (0.6-1.0) mg/dL Est Cr Clr Drug Dosing 78.67 mL/min Estimated GFR (MDRD) > 60.0 ml/min Glucose 110 H (74-106) mg/dL Calcium 7.7 L (8.5-10.1) mg/dL Phosphorus (2.6-4.7) mg/dL Magnesium 1.4 L (1.8-2.4) mg/dL Total Bilirubin 0.3 (0.2-1.0) mg/dL Direct Bilirubin 0.10 (0.0-0.5) mg/dL AST 22 (15-37) IU/L ALT 31 (14-63) IU/L Alkaline Phosphatase 70 (46-116) U/L Troponin I < 0.050 (0.000-0.056) ng/mL Total Protein 6.8 (6.4-8.2) g/dL Albumin 3.1 L (3.4-5.0) g/dL Globulin 3.7 (2.6-4.0) g/dL Albumin/Globulin Ratio 0.8 L (0.9-1.6) Lipase 107 (73-393) U/L Urine Color Urine Appearance Urine pH (5.0-8.0) Ur Specific Anderson (1.001-1.035) Urine Protein (NEGATIVE) mg/dL Urine Glucose (UA) (NEGATIVE) mg/dL Urine Ketones (NEGATIVE) mg/dL Urine Occult Blood (NEGATIVE) Urine Nitrite (NEGATIVE) Urine Bilirubin (NEGATIVE) Urine Urobilinogen (<2.0) EU/dL Ur Leukocyte Esterase (NEGATIVE) Urine RBC (0-2/HPF) Urine WBC (0-5/HPF) Ur Epithelial Cells (NONE-FEW) Urine Bacteria (NEGATIVE) Influenza Type A RNA NEGATIVE (NEGATIVE) Influenza Type B RNA NEGATIVE (NEGATIVE) SARS-CoV-2 RNA (JANET) POSITIVE H (NEGATIVE) 01/16/21 01/16/21 Range/Units 05:50 05:50 WBC 2.09 L (4.0-11.0) K/uL RBC 4.70 (4.30-5.90) M/uL Hgb 13.7 (12.0-16.0) g/dL Hct 41.5 (36.0-46.0) % MCV 88.3 (80.0-98.0) fL MCH 29.1 (27.0-32.0) pg MCHC 33.0 (31.0-37.0) g/dL RDW Std Deviation 45.9 (28.0-62.0) fl RDW Coeff of Ian 14 (11.0-15.0) % Plt Count 137 L (150-400) K/uL MPV 10.10 (7.40-12.00) fL Neut % (Auto) 67.0 (48.0-80.0) % Lymph % (Auto) 26.3 (16.0-40.0) % [place] % (Auto) 6.7 (0.0-15.0) % Eos % (Auto) 0.0 (0.0-7.0) % Baso % (Auto) 0.0 (0.0-1.5) % Neut # (Auto) 1.4 (1.4-5.7) K/uL Lymph # (Auto) 0.6 (0.6-2.4) K/uL [place] # (Auto) 0.1 (0.0-0.8) K/uL Eos # (Auto) 0.0 (0.0-0.7) K/uL Baso # (Auto) 0.0 (0.0-0.1) K/uL Nucleated RBC % 0.0 /100WBC Nucleated RBCs # 0 K/uL Lactate (0.20-2.00) mmol/L Sodium 139 (136-145) mmol/L Potassium 4.4 (3.5-5.1) mmol/L Chloride 104 (98-107) mmol/L Carbon Dioxide 29.3 (21.0-32.0) mmol/L BUN 14 (7.0-18.0) mg/dL Creatinine 0.6 (0.6-1.0) mg/dL Est Cr Clr Drug Dosing 91.78 mL/min Estimated GFR (MDRD) > 60.0 ml/min Glucose 149 H (74-106) mg/dL Calcium 7.9 L (8.5-10.1) mg/dL Phosphorus 2.8 (2.6-4.7) mg/dL Magnesium 2.2 (1.8-2.4) mg/dL Total Bilirubin 0.2 (0.2-1.0) mg/dL Direct Bilirubin (0.0-0.5) mg/dL AST 16 (15-37) IU/L ALT 31 (14-63) IU/L Alkaline Phosphatase 65 (46-116) U/L Troponin I (0.000-0.056) ng/mL Total Protein 6.7 (6.4-8.2) g/dL Albumin 2.7 L (3.4-5.0) g/dL Globulin 4.0 (2.6-4.0) g/dL Albumin/Globulin Ratio 0.7 L (0.9-1.6) Lipase (73-393) U/L Urine Color Urine Appearance Urine pH (5.0-8.0) Ur Specific Anderson (1.001-1.035) Urine Protein (NEGATIVE) mg/dL Urine Glucose (UA) (NEGATIVE) mg/dL Urine Ketones (NEGATIVE) mg/dL Urine Occult Blood (NEGATIVE) Urine Nitrite (NEGATIVE) Urine Bilirubin (NEGATIVE) Urine Urobilinogen (<2.0) EU/dL Ur Leukocyte Esterase (NEGATIVE) Urine RBC (0-2/HPF) Urine WBC (0-5/HPF) Ur Epithelial Cells (NONE-FEW) Urine Bacteria (NEGATIVE) Influenza Type A RNA (NEGATIVE) Influenza Type B RNA (NEGATIVE) SARS-CoV-2 RNA (JANET) (NEGATIVE) Med Orders - Current: Current Medications Acetaminophen (Acetaminophen 325 Mg Tab) 650 mg PO Q4H PRN PRN Reason: Pain (Mild 1-3)/fever Albuterol/Ipratropium (Albuterol/Ipratropium 4 Gm Inhalation [place]) 0 gm INH Q4H KEITH Last Admin: 01/16/21 04:07 Dose: 1 puff Documented by: Amlodipine Besylate (Amlodipine 5 Mg Tab) 5 mg PO DAILY [facility] Last Admin: 01/15/21 23:38 Dose: 5 mg Documented by: Dexamethasone (Dexamethasone 4 Mg Tab) 6 mg PO DAILY [facility] Enoxaparin Sodium (Enoxaparin 40 Mg/0.4 Ml Syringe) 40 mg SUBCUT Q24H [facility] Last Admin: 01/15/21 22:24 Dose: 40 mg Documented by: Hydrochlorothiazide (Hydrochlorothiazide 25 Mg Tab) 25 mg PO DAILY [facility] Remdesivir 100 mg/ Sodium (Chloride) 100 mls @ 100 mls/hr IV Q24H KEITH Stop: 01/19/21 09:59 Pantoprazole Sodium 40 mg/ (Sodium Chloride) 10 mls @ 300 mls/hr IV DAILY [facility] Levofloxacin/Dextrose 750 mg/ (Premix) 150 mls @ 100 mls/hr IV Q24H [facility] Last Admin: 01/15/21 22:16 Dose: 100 mls/hr Documented by: Metoprolol Tartrate (Metoprolol Tartrate 50 Mg Tab) 100 mg PO BID [facility] Last Admin: 01/15/21 23:38 Dose: 100 mg Documented by: Ondansetron HCl (Ondansetron 4 Mg/2 Ml Sdv) 4 mg IVPUSH Q4H PRN PRN Reason: Nausea/Vomiting Paroxetine HCl (Paroxetine 10 Mg Tab) 10 mg PO DAILY [facility] Sodium Chloride (Sodium Chloride 0.9% 2.5 Ml Syringe) 2.5 ml FLUSH ASDIRECTED PRN PRN Reason: Keep Vein Open Last Admin: 01/15/21 18:58 Dose: 2.5 ml Documented by: Sodium Chloride (Sodium Chloride 0.9% 10 Ml Syringe) 10 ml FLUSH ASDIRECTED PRN PRN Reason: Keep Vein Open Last Admin: 01/15/21 18:58 Dose: 10 ml Documented by: Zaleplon (Zaleplon 5 Mg Cap) 5 mg PO BEDTIME [facility] Discontinued Medications Acetaminophen (Acetaminophen 325 Mg Tab) 650 mg PO NOW ONE Stop: 01/15/21 18:53 Last Admin: 01/15/21 19:34 Dose: 650 mg Documented by: Calcium Gluconate (Calcium Gluconate 10% 1 Gm/10 Ml Sdv) 1 gm IVPUSH ONETIME ONE Stop: 01/15/21 19:42 Last Admin: 01/15/21 20:25 Dose: 1 gm Documented by: Dexamethasone (Dexamethasone 10 Mg/Ml Sdv) 6 mg IVPUSH ONETIME ONE Stop: 01/15/21 19:43 Last Admin: 01/15/21 20:25 Dose: 6 mg Documented by: Sodium Chloride (Normal Saline) 1,000 mls @ 999 mls/hr IV BOLUS ONE Stop: 01/15/21 19:15 Last Admin: 01/15/21 18:56 Dose: 999 mls/hr Documented by: Remdesivir 200 mg/ Sodium (Chloride) 250 mls @ 250 mls/hr IV ONETIME ONE Stop: 01/15/21 19:54 Last Admin: 01/15/21 20:24 Dose: 250 mls/hr Documented by: Magnesium Sulfate (Magnesium Sulfate In Water 2 Gm/50 Ml) 2 gm in 50 mls @ 50 mls/hr IV ONETIME ONE Stop: 01/15/21 23:22 Last Admin: 01/15/21 23:39 Dose: 50 mls/hr Documented by: Ketorolac Tromethamine (Ketorolac 30 Mg/Ml Sdv) 30 mg IVPUSH ONETIME ONE Stop: 01/15/21 18:50 Last Admin: 01/15/21 19:35 Dose: 30 mg Documented by: Potassium Chloride (Potassium Chloride 20 Meq Tab.Er) 40 meq PO ONETIME ONE Stop: 01/15/21 22:24 Last Admin: 01/15/21 23:38 Dose: 40 meq Documented by: - Exam Quality Assessment: Supplemental Oxygen (1 L nasal cannula), DVT Prophylaxis General: Alert, Oriented, Cooperative Lungs: Normal Respiratory Effort, Decreased Breath Sounds, Crackles (Fine crackles bibasilar) Cardiovascular: Regular Rate, Regular Rhythm, No Murmurs GI/Abdominal Exam: Normal Bowel Sounds, Soft, Non-Tender Extremities: Normal Inspection, Normal Range of Motion, Non-Tender, No Pedal Edema Neurological: No New Focal Deficit Psy/Mental Status: Alert, Normal Affect, Normal Mood - Patient Data Lab Results Last 24 hrs: Laboratory Results - last 24 hr 01/15/21 01/15/21 01/15/21 Range/Units 18:02 18:19 18:19 WBC 3.55 L (4.0-11.0) K/uL RBC 4.70 (4.30-5.90) M/uL Hgb 14.1 (12.0-16.0) g/dL Hct 41.3 (36.0-46.0) % MCV 87.9 (80.0-98.0) fL MCH 30.0 (27.0-32.0) pg MCHC 34.1 (31.0-37.0) g/dL RDW Std Deviation 46.7 (28.0-62.0) fl RDW Coeff of Ian 14 (11.0-15.0) % Plt Count 177 (150-400) K/uL MPV 11.30 (7.40-12.00) fL Neut % (Auto) 63.6 (48.0-80.0) % Lymph % (Auto) 20.6 (16.0-40.0) % [place] % (Auto) 14.9 (0.0-15.0) % Eos % (Auto) 0.6 (0.0-7.0) % Baso % (Auto) 0.3 (0.0-1.5) % Neut # (Auto) 2.3 (1.4-5.7) K/uL Lymph # (Auto) 0.7 (0.6-2.4) K/uL [place] # (Auto) 0.5 (0.0-0.8) K/uL Eos # (Auto) 0.0 (0.0-0.7) K/uL Baso # (Auto) 0.0 (0.0-0.1) K/uL Nucleated RBC % 0.0 /100WBC Nucleated RBCs # 0 K/uL Lactate 0.8 (0.20-2.00) mmol/L Sodium (136-145) mmol/L Potassium (3.5-5.1) mmol/L Chloride (98-107) mmol/L Carbon Dioxide (21.0-32.0) mmol/L BUN (7.0-18.0) mg/dL Creatinine (0.6-1.0) mg/dL Est Cr Clr Drug Dosing mL/min Estimated GFR (MDRD) ml/min Glucose (74-106) mg/dL Calcium (8.5-10.1) mg/dL Phosphorus (2.6-4.7) mg/dL Magnesium (1.8-2.4) mg/dL Total Bilirubin (0.2-1.0) mg/dL Direct Bilirubin (0.0-0.5) mg/dL AST (15-37) IU/L ALT (14-63) IU/L Alkaline Phosphatase (46-116) U/L Troponin I (0.000-0.056) ng/mL Total Protein (6.4-8.2) g/dL Albumin (3.4-5.0) g/dL Globulin (2.6-4.0) g/dL Albumin/Globulin Ratio (0.9-1.6) Lipase (73-393) U/L Urine Color YELLOW Urine Appearance SLT CLOUDY Urine pH 5.5 (5.0-8.0) Ur Specific Anderson 1.020 (1.001-1.035) Urine Protein TRACE H (NEGATIVE) mg/dL Urine Glucose (UA) NEGATIVE (NEGATIVE) mg/dL Urine Ketones NEGATIVE (NEGATIVE) mg/dL Urine Occult Blood MODERATE H (NEGATIVE) Urine Nitrite NEGATIVE (NEGATIVE) Urine Bilirubin NEGATIVE (NEGATIVE) Urine Urobilinogen 0.2 (<2.0) EU/dL Ur Leukocyte Esterase TRACE H (NEGATIVE) Urine RBC 2-4 (0-2/HPF) Urine WBC 1-3 (0-5/HPF) Ur Epithelial Cells MANY (NONE-FEW) Urine Bacteria RARE (NEGATIVE) Influenza Type A RNA (NEGATIVE) Influenza Type B RNA (NEGATIVE) SARS-CoV-2 RNA (JANET) (NEGATIVE) 01/15/21 01/15/21 01/15/21 Range/Units 18:52 18:52 18:53 WBC (4.0-11.0) K/uL RBC (4.30-5.90) M/uL Hgb (12.0-16.0) g/dL Hct (36.0-46.0) % MCV (80.0-98.0) fL MCH (27.0-32.0) pg MCHC (31.0-37.0) g/dL RDW Std Deviation (28.0-62.0) fl RDW Coeff of Ian (11.0-15.0) % Plt Count (150-400) K/uL MPV (7.40-12.00) fL Neut % (Auto) (48.0-80.0) % Lymph % (Auto) (16.0-40.0) % [place] % (Auto) (0.0-15.0) % Eos % (Auto) (0.0-7.0) % Baso % (Auto) (0.0-1.5) % Neut # (Auto) (1.4-5.7) K/uL Lymph # (Auto) (0.6-2.4) K/uL [place] # (Auto) (0.0-0.8) K/uL Eos # (Auto) (0.0-0.7) K/uL Baso # (Auto) (0.0-0.1) K/uL Nucleated RBC % /100WBC Nucleated RBCs # K/uL Lactate (0.20-2.00) mmol/L Sodium 137 (136-145) mmol/L Potassium 3.4 L (3.5-5.1) mmol/L Chloride 100 (98-107) mmol/L Carbon Dioxide 27.0 (21.0-32.0) mmol/L BUN 16 (7.0-18.0) mg/dL Creatinine 0.7 (0.6-1.0) mg/dL Est Cr Clr Drug Dosing 78.67 mL/min Estimated GFR (MDRD) > 60.0 ml/min Glucose 110 H (74-106) mg/dL Calcium 7.7 L (8.5-10.1) mg/dL Phosphorus (2.6-4.7) mg/dL Magnesium 1.4 L (1.8-2.4) mg/dL Total Bilirubin 0.3 (0.2-1.0) mg/dL Direct Bilirubin 0.10 (0.0-0.5) mg/dL AST 22 (15-37) IU/L ALT 31 (14-63) IU/L Alkaline Phosphatase 70 (46-116) U/L Troponin I < 0.050 (0.000-0.056) ng/mL Total Protein 6.8 (6.4-8.2) g/dL Albumin 3.1 L (3.4-5.0) g/dL Globulin 3.7 (2.6-4.0) g/dL Albumin/Globulin Ratio 0.8 L (0.9-1.6) Lipase 107 (73-393) U/L Urine Color Urine Appearance Urine pH (5.0-8.0) Ur Specific Anderson (1.001-1.035) Urine Protein (NEGATIVE) mg/dL Urine Glucose (UA) (NEGATIVE) mg/dL Urine Ketones (NEGATIVE) mg/dL Urine Occult Blood (NEGATIVE) Urine Nitrite (NEGATIVE) Urine Bilirubin (NEGATIVE) Urine Urobilinogen (<2.0) EU/dL Ur Leukocyte Esterase (NEGATIVE) Urine RBC (0-2/HPF) Urine WBC (0-5/HPF) Ur Epithelial Cells (NONE-FEW) Urine Bacteria (NEGATIVE) Influenza Type A RNA NEGATIVE (NEGATIVE) Influenza Type B RNA NEGATIVE (NEGATIVE) SARS-CoV-2 RNA (JANET) POSITIVE H (NEGATIVE) 01/16/21 01/16/21 Range/Units 05:50 05:50 WBC 2.09 L (4.0-11.0) K/uL RBC 4.70 (4.30-5.90) M/uL Hgb 13.7 (12.0-16.0) g/dL Hct 41.5 (36.0-46.0) % MCV 88.3 (80.0-98.0) fL MCH 29.1 (27.0-32.0) pg MCHC 33.0 (31.0-37.0) g/dL RDW Std Deviation 45.9 (28.0-62.0) fl RDW Coeff of Ian 14 (11.0-15.0) % Plt Count 137 L (150-400) K/uL MPV 10.10 (7.40-12.00) fL Neut % (Auto) 67.0 (48.0-80.0) % Lymph % (Auto) 26.3 (16.0-40.0) % [place] % (Auto) 6.7 (0.0-15.0) % Eos % (Auto) 0.0 (0.0-7.0) % Baso % (Auto) 0.0 (0.0-1.5) % Neut # (Auto) 1.4 (1.4-5.7) K/uL Lymph # (Auto) 0.6 (0.6-2.4) K/uL [place] # (Auto) 0.1 (0.0-0.8) K/uL Eos # (Auto) 0.0 (0.0-0.7) K/uL Baso # (Auto) 0.0 (0.0-0.1) K/uL Nucleated RBC % 0.0 /100WBC Nucleated RBCs # 0 K/uL Lactate (0.20-2.00) mmol/L Sodium 139 (136-145) mmol/L Potassium 4.4 (3.5-5.1) mmol/L Chloride 104 (98-107) mmol/L Carbon Dioxide 29.3 (21.0-32.0) mmol/L BUN 14 (7.0-18.0) mg/dL Creatinine 0.6 (0.6-1.0) mg/dL Est Cr Clr Drug Dosing 91.78 mL/min Estimated GFR (MDRD) > 60.0 ml/min Glucose 149 H (74-106) mg/dL Calcium 7.9 L (8.5-10.1) mg/dL Phosphorus 2.8 (2.6-4.7) mg/dL Magnesium 2.2 (1.8-2.4) mg/dL Total Bilirubin 0.2 (0.2-1.0) mg/dL Direct Bilirubin (0.0-0.5) mg/dL AST 16 (15-37) IU/L ALT 31 (14-63) IU/L Alkaline Phosphatase 65 (46-116) U/L Troponin I (0.000-0.056) ng/mL Total Protein 6.7 (6.4-8.2) g/dL Albumin 2.7 L (3.4-5.0) g/dL Globulin 4.0 (2.6-4.0) g/dL Albumin/Globulin Ratio 0.7 L (0.9-1.6) Lipase (73-393) U/L Urine Color Urine Appearance Urine pH (5.0-8.0) Ur Specific Anderson (1.001-1.035) Urine Protein (NEGATIVE) mg/dL Urine Glucose (UA) (NEGATIVE) mg/dL Urine Ketones (NEGATIVE) mg/dL Urine Occult Blood (NEGATIVE) Urine Nitrite (NEGATIVE) Urine Bilirubin (NEGATIVE) Urine Urobilinogen (<2.0) EU/dL Ur Leukocyte Esterase (NEGATIVE) Urine RBC (0-2/HPF) Urine WBC (0-5/HPF) Ur Epithelial Cells (NONE-FEW) Urine Bacteria (NEGATIVE) Influenza Type A RNA (NEGATIVE) Influenza Type B RNA (NEGATIVE) SARS-CoV-2 RNA (JANET) (NEGATIVE) Result Diagrams: 01/16/21 05:50 01/16/21 05:50 Sepsis Event Note - Evaluation Sepsis Screening Result: No Definite Risk - Focused Exam Vital Signs: Vital Signs Temp Temp Pulse Pulse Resp BP BP 01/16/21 04:08 96.9 F 60 18 130/70 01/15/21 23:43 96.9 F 76 18 127/77 01/15/21 23:38 76 127/77 01/15/21 22:00 96.9 F 81 18 145/78 H Pulse Ox 01/16/21 04:08 94 L 01/15/21 23:43 92 L 01/15/21 23:38 01/15/21 22:00 94 L - Problem List & Annotations (1) Acute hypoxemic respiratory failure due to COVID-19 SNOMED Code(s): 993685894 Code(s): U07.1 - COVID-19; J96.01 - ACUTE RESPIRATORY FAILURE WITH HYPOXIA Status: Acute Current Visit: Yes (2) COVID-19 virus infection SNOMED Code(s): 316033555 Code(s): U07.1 - COVID-19 Status: Acute Current Visit: Yes (3) HTN (hypertension) SNOMED Code(s): 36009169 Code(s): I10 - ESSENTIAL (PRIMARY) HYPERTENSION Status: Acute Current Visit: Yes Qualifiers: Hypertension type: essential hypertension Qualified Code(s): I10 - Essential (primary) hypertension (4) Hypocalcemia SNOMED Code(s): 6395979 Code(s): E83.51 - HYPOCALCEMIA Status: Acute Current Visit: Yes - Problem List Review Problem List Initiated/Reviewed/Updated: Yes - Plan Plan:: 65 y/o F admitted for acute hypoxic respiratory failure, COVID19 viral pneumonia and possible CAP 1. Acute hypoxic respiratory failure/COVID 19/Viral pneumonia/Possible CAP -cont oxygenation via NC keep sats greater than 92%, wean as possible. - Continue Remdesivir 100 mg IV daily x 4 days - PO dexamethasone 6 mg daily x 10 days total - SUbQ Lovenox - Continue Combivent, make PRN dyspnea/wheezing - Levaquin IV 750 mg daily for possible underlying bacterial PNA - Pulmonary toilet with IS, acapella, proning and CDB - Ok to DC Continuous pulse ox - Monitor LFTS daily with Remdesivir treatment 2. Electrolyte abnormalities - Hypo K and Mag improved - Calcium 7.9 but corrected for hypoalbumin, 8.94 3. HTN - Continue Amlodipine, HCTZ, and metoprolol - DC telemetry VTE prophylaxis: Lovenox GI prophylaxis: Protonix Code status: Full code Dispo: 2-3 days, will make inpatient as she will likely need greater than 2 midnight stay,
[2021-01-16] MEDS ORDERED: Sodium Chloride 0.9% 2.5 ML Syringe FLUSH PRN (07:58)
[2021-01-16] MEDS: Pantoprazole 40 MG in Sodium Chloride 0.9% 10 ML IV SCH (08:24)
[2021-01-16] MEDS: Hydrochlorothiazide 25 MG Tab PO SCH (08:25)
[2021-01-16] MEDS: Dexamethasone 4 MG Tab PO SCH (08:25)
[2021-01-16] MEDS: amLODIPine 5 MG Tab PO SCH (08:25)
[2021-01-16] MEDS: Metoprolol Tartrate 50 MG Tab PO SCH ×2 (08:53→20:27)
[2021-01-16] MEDS ORDERED: Albuterol/Ipratropium 4 GM Inhalation Spray INH PRN (14:00)
[2021-01-16] MEDS ORDERED: REMDESIVIR 100 MG in Sodium Chloride 0.9% 100 ML IV SCH (20:00)
[2021-01-16] MEDS: Enoxaparin 40 MG/0.4 ML Syringe SUBCUT SCH (20:29)
[2021-01-16] MEDS: Levofloxacin/Dextrose 5%-Water 750 MG in Premix Bag 1 BAG IV SCH (21:32)
[2021-01-17 06:05] LABS: BLOOD UREA NITROGEN,BUN 13 mg/dL (7.0-18.0); CARBON DIOXIDE,CO2 29.8 mmol/L (21.0-32.0); CHLORIDE,CL 105 mmol/L (98-107); GLUCOSE RANDOM 104 mg/dL (74-106); POTASSIUM,K 3.6 mmol/L (3.5-5.1); SODIUM,NA 141 mmol/L (136-145)
[2021-01-17] MEDS ORDERED: Phosphorus #1 250 MG Tab PO SCH (08:00)
[2021-01-17] MEDS: Dexamethasone 4 MG Tab PO SCH (08:50)
[2021-01-17] MEDS: Hydrochlorothiazide 25 MG Tab PO SCH (08:50)
[2021-01-17] MEDS: amLODIPine 5 MG Tab PO SCH (08:50)
[2021-01-17] MEDS: Pantoprazole 40 MG in Sodium Chloride 0.9% 10 ML IV SCH (08:51)
[2021-01-17] MEDS: Metoprolol Tartrate 50 MG Tab PO SCH (08:51)
--- NOTE | 2021-01-17 10:57 | PCM.DCSUM1 ---
Discharge Summary - Hospital Course Brief History: Patient is a 65-year-old female with PMH of HTN, fibromuscular dysplasia of renal vessels, presenting to the ED with her daughter with complaints of fatigue and intermittent cough that has been present x3 days. Patient states that her daughter checked her oxygen levels at home with pulse oxygen as she was unable to get out of bed today , her oxygen saturation was 80% which prompted her to come to the ED. Patient states that for 3 days she has experienced muscle aches, fatigue, decreased appetite, malaise, fever/chills, dizziness, dry throat and mouth, and intermittent cough. Patient states she has taken multiple doses of ibuprofen for her fever and body aches with mild reduction of symptoms. States she did spike a fever at home. Patient states she thinks she contracted COVID from her daughter who has lost her sense of smell and taste. Patient denies chest pain or shortness of breath. Denies headache, neck stiff ness, change in vision, syncope, or near syncope. Denies nausea, vomiting, abdominal pain, diarrhea, constipation, or dysuria. Has not noted any blood in urine or stool. Patient has been drinking appropriately. States she missed taking her meds today. In the ER patient was hypoxixic in 80s so was started on NC 2Ls. CXR showed mild opacity in right middle lung, labs showed some electrolyte disturbances, EKG unremarkable for ACS, showed some old ischemic changes, Troponin negative, COVID was positive as well. Patient was admitted for further management. Diagnosis: Stroke: No - Discharge Data Discharge Date: 01/17/21 Discharge Disposition: Home, Self-Care 01 Condition: Good - Referral to Home Health Primary Care Physician: Tj Garcia MD - Discharge Diagnosis/Problem(s) (1) Acute hypoxemic respiratory failure due to COVID-19 SNOMED Code(s): 790728081 ICD Code: U07.1 - COVID-19; J96.01 - ACUTE RESPIRATORY FAILURE WITH HYPOXIA Status: Acute Current Visit: Yes (2) COVID-19 virus infection SNOMED Code(s): 687461378 ICD Code: U07.1 - COVID-19 Status: Acute Current Visit: Yes (3) HTN (hypertension) SNOMED Code(s): 29684455 ICD Code: I10 - ESSENTIAL (PRIMARY) HYPERTENSION Status: Acute Current Visit: Yes Qualifiers: Hypertension type: essential hypertension Qualified Code(s): I10 - Essential (primary) hypertension (4) Hypocalcemia SNOMED Code(s): 1449988 ICD Code: E83.51 - HYPOCALCEMIA Status: Acute Current Visit: Yes - Patient Summary/Data Hospital Course: Admission diagnoses Acute hypoxic respiratory failure COVID-19 viral pneumonia Possible CAP Discharge diagnoses Acute hypoxic respiratory failure resolved COVID-19 viral pneumonia CAP Bautista was admitted secondary to acute hypoxic respiratory failure with COVID-19 viral pneumonia as well as possible CAP. She was treated with dexamethasone, remdesivir, Combivent, as well as Levaquin. She is initially needing 2 L of oxygen to keep sats greater than 94%. Yesterday she was weaned off oxygen and was satting 95 to 98% on room air. She has sided well all night as well as this morning on room air. She is feeling significantly improved. With activity she was monitored with room air saturations and oxygen remained at 94%. She has no concerns or complaints of shortness of breath. She reports that she is able to get higher on her I-S and with Acapella she feels as though things are loosening up in her chest. She is quickly improved and is requesting discharge today as she is feeling much improved. She has not been able to sleep well the last 2 nights and feels as though she needs to be home to be able to sleep well. She will be discharged home today as she is medically stable, she will continue with Levaquin for 3 more days for total of 5-day course along with prednisone for 3 more days total of 4-day taper. She will also be sent home with Combivent inhaler as needed for shortness of breath or wheezing. She is also encouraged to continue pulmonary toileting with I-S, Acapella, coughing deep breathing as well as prone positioning. She was counseled she needs to return to the hospital if condition worsens at home. She verbalized understanding reports that she does have a pulse oximetry at home and will keep a close eye on her oxygen. She is to continue all home medications and follow-up with PCP in 1 to 2 weeks. Due to her hospitalizations and recommended isolation time per CDC is 20 days from onset of symptoms. She was notified of this and agrees. She is to continue social distancing and wearing a mask we did also encourage vaccine administration in the coming months. She is to return to the ER or clinic sooner if concerns should arise. - Patient Instructions Diet: Heart Healthy Diet Activity: No Strenuous Activities, Rest and Relax Today Showering/Bathing: May Shower Notify Provider of: Fever, Increased Pain, Swelling and Redness, Drainage, Nausea and/or Vomiting Other/Special Instructions: Continue to socia distance and wear a mask once done with isolation. Continue - Discharge Plan *PRESCRIPTION DRUG MONITORING PROGRAM REVIEWED*: Not Applicable *COPY OF PRESCRIPTION DRUG MONITORING REPORT IN PATIENT ZAYRA: Not Applicable Prescriptions/Med Rec: levoFLOXacin [Levaquin] 750 mg PO DAILY #3 tab predniSONE [Prednisone] 40 mg PO DAILY #6 tablet Home Medications: Home Meds Metoprolol Tartrate 100 mg PO BID 01/15/21 [History] PARoxetine HCL [Paroxetine HCl] 10 mg PO DAILY 01/15/21 [History] Zolpidem Tartrate 10 mg PO BEDTIME 01/15/21 [History] amLODIPine Besylate [Amlodipine Besylate] 5 mg PO DAILY 01/15/21 [History] hydroCHLOROthiazide [Hydrochlorothiazide] 1 tab PO DAILY 01/15/21 [History] Acetaminophen [Tylenol] 650 mg PO Q4H PRN tablet 01/17/21 [Rx] Albuterol/Ipratropium [Combivent Respimat] 1 puff INH Q4HRRT PRN inhaler 01/17/21 [Rx] levoFLOXacin [Levaquin] 750 mg PO DAILY #3 tab 01/17/21 [Rx] predniSONE [Prednisone] 40 mg PO DAILY #6 tablet 01/17/21 [Rx] Oxygen Therapy Mode: Room Air Patient Handouts: Ipratropium; Albuterol Inhalation [place] (Combivent Respimat), COVID-19, COVID-19 Vaccine Information, 10 Things You Can Do to Manage Your COVID-19 Symptoms at Home - CDC, Acute Respiratory Failure, Adult, Levofloxacin tablets, COVID-19: Quarantine vs. Isolation - CDC, Prednisone tablets, Prevent the Spread of COVID-19 if You Are Sick - [facility] Referrals: Tj Garcia MD [Primary Care Provider] - - Discharge Summary/Plan Comment DC Time >30 min.: No - Patient Data Vitals - Most Recent: Last Vital Signs Temp 96.2 F L 01/17/21 07:00 Pulse 52 L 01/17/21 08:51 Resp 16 01/17/21 07:00 BP 108/64 01/17/21 08:51 Pulse Ox 94 L 01/17/21 07:00 Weight - Most Recent: 112.582 kg I&O - Last 24 hours: Intake & Output 01/16/21 01/17/21 01/17/21 22:59 06:59 14:59 Intake Total 1320 850 Output Total 900 1500 Balance 420 -650 Lab Results - Last 24 hrs: Laboratory Results - last 24 hr 01/17/21 01/17/21 Range/Units 05:32 05:32 WBC 3.99 L (4.0-11.0) K/uL RBC 4.49 (4.30-5.90) M/uL Hgb 13.3 (12.0-16.0) g/dL Hct 39.4 (36.0-46.0) % MCV 87.8 (80.0-98.0) fL MCH 29.6 (27.0-32.0) pg MCHC 33.8 (31.0-37.0) g/dL RDW Std Deviation 45.8 (28.0-62.0) fl RDW Coeff of Ian 14 (11.0-15.0) % Plt Count 164 (150-400) K/uL MPV 10.30 (7.40-12.00) fL Neut % (Auto) 56.6 (48.0-80.0) % Lymph % (Auto) 33.1 (16.0-40.0) % [place] % (Auto) 10.3 (0.0-15.0) % Eos % (Auto) 0.0 (0.0-7.0) % Baso % (Auto) 0.0 (0.0-1.5) % Neut # (Auto) 2.3 (1.4-5.7) K/uL Lymph # (Auto) 1.3 (0.6-2.4) K/uL [place] # (Auto) 0.4 (0.0-0.8) K/uL Eos # (Auto) 0.0 (0.0-0.7) K/uL Baso # (Auto) 0.0 (0.0-0.1) K/uL Nucleated RBC % 0.0 /100WBC Nucleated RBCs # 0 K/uL Sodium 141 (136-145) mmol/L Potassium 3.6 (3.5-5.1) mmol/L Chloride 105 (98-107) mmol/L Carbon Dioxide 29.8 (21.0-32.0) mmol/L BUN 13 (7.0-18.0) mg/dL Creatinine 0.6 (0.6-1.0) mg/dL Est Cr Clr Drug Dosing 91.78 mL/min Estimated GFR (MDRD) > 60.0 ml/min Glucose 104 (74-106) mg/dL Calcium 8.2 L (8.5-10.1) mg/dL Phosphorus 2.3 L (2.6-4.7) mg/dL Magnesium 1.9 (1.8-2.4) mg/dL Total Bilirubin 0.2 (0.2-1.0) mg/dL AST 19 (15-37) IU/L ALT 28 (14-63) IU/L Alkaline Phosphatase 59 (46-116) U/L Total Protein 6.4 (6.4-8.2) g/dL Albumin 2.8 L (3.4-5.0) g/dL Globulin 3.6 (2.6-4.0) g/dL Albumin/Globulin Ratio 0.8 L (0.9-1.6) MYRA Results - Last 24 hrs: Microbiology 01/15/21 18:02 Urine Culture - Final Urine, Clean Catch MIXED JOBY >100,000 CFU/ML 01/15/21 18:52 Aerobic Blood Culture - Preliminary Blood - Venous - Lab Draw NO GROWTH AFTER 1 DAY Anaerobic Blood Culture - Preliminary NO GROWTH AFTER 1 DAY 01/15/21 18:19 Aerobic Blood Culture - Preliminary Blood - Venous NO GROWTH AFTER 1 DAY Anaerobic Blood Culture - Preliminary NO GROWTH AFTER 1 DAY Med Orders - Current: Current Medications Acetaminophen (Acetaminophen 325 Mg Tab) 650 mg PO Q4H PRN PRN Reason: Pain (Mild 1-3)/fever Last Admin: 01/17/21 03:29 Dose: 650 mg Documented by: Albuterol/Ipratropium (Albuterol/Ipratropium 4 Gm Inhalation [place]) 0 gm INH Q4HRRT PRN PRN Reason: Dyspnea Last Admin: 01/16/21 14:40 Dose: 1 puff Documented by: Amlodipine Besylate (Amlodipine 5 Mg Tab) 5 mg PO DAILY [facility] Last Admin: 01/17/21 08:50 Dose: 5 mg Documented by: Dexamethasone (Dexamethasone 4 Mg Tab) 6 mg PO DAILY [facility] Last Admin: 01/17/21 08:50 Dose: 6 mg Documented by: Enoxaparin Sodium (Enoxaparin 40 Mg/0.4 Ml Syringe) 40 mg SUBCUT Q24H [facility] Last Admin: 01/16/21 20:29 Dose: 40 mg Documented by: Hydrochlorothiazide (Hydrochlorothiazide 25 Mg Tab) 25 mg PO DAILY [facility] Last Admin: 01/17/21 08:50 Dose: 25 mg Documented by: Remdesivir 100 mg/ Sodium (Chloride) 100 mls @ 100 mls/hr IV Q24H [facility] Stop: 01/19/21 20:59 Last Admin: 01/16/21 20:18 Dose: 100 mls/hr Documented by: Pantoprazole Sodium 40 mg/ (Sodium Chloride) 10 mls @ 300 mls/hr IV DAILY [facility] Last Admin: 01/17/21 08:51 Dose: 300 mls/hr Documented by: Levofloxacin/Dextrose 750 mg/ (Premix) 150 mls @ 100 mls/hr IV Q24H [facility] Last Admin: 01/16/21 21:32 Dose: 100 mls/hr Documented by: Metoprolol Tartrate (Metoprolol Tartrate 50 Mg Tab) 100 mg PO BID [facility] Last Admin: 01/17/21 08:51 Dose: 100 mg Documented by: Ondansetron HCl (Ondansetron 4 Mg/2 Ml Sdv) 4 mg IVPUSH Q4H PRN PRN Reason: Nausea/Vomiting Paroxetine HCl (Paroxetine 10 Mg Tab) 10 mg PO DAILY [facility] Last Admin: 01/17/21 08:50 Dose: 10 mg Documented by: Sodium Chloride (Sodium Chloride 0.9% 2.5 Ml Syringe) 2.5 ml FLUSH ASDIRECTED PRN PRN Reason: Keep Vein Open Sodium Phosphate (Phosphorus #1 250 Mg Tab) 250 mg PO QID [facility] Last Admin: 01/17/21 08:50 Dose: 250 mg Documented by: Zaleplon (Zaleplon 5 Mg Cap) 5 mg PO BEDTIME [facility] Last Admin: 01/16/21 21:34 Dose: 5 mg Documented by: Discontinued Medications Acetaminophen (Acetaminophen 325 Mg Tab) 650 mg PO NOW ONE Stop: 01/15/21 18:53 Last Admin: 01/15/21 19:34 Dose: 650 mg Documented by: Albuterol/Ipratropium (Albuterol/Ipratropium 4 Gm Inhalation [place]) 0 gm INH Q4H [facility] Last Admin: 01/16/21 08:22 Dose: 1 puff Documented by: Calcium Gluconate (Calcium Gluconate 10% 1 Gm/10 Ml Sdv) 1 gm IVPUSH ONETIME ONE Stop: 01/15/21 19:42 Last Admin: 01/15/21 20:25 Dose: 1 gm Documented by: Dexamethasone (Dexamethasone 10 Mg/Ml Sdv) 6 mg IVPUSH ONETIME ONE Stop: 01/15/21 19:43 Last Admin: 01/15/21 20:25 Dose: 6 mg Documented by: Sodium Chloride (Normal Saline) 1,000 mls @ 999 mls/hr IV BOLUS ONE Stop: 01/15/21 19:15 Last Admin: 01/15/21 18:56 Dose: 999 mls/hr Documented by: Remdesivir 200 mg/ Sodium (Chloride) 250 mls @ 250 mls/hr IV ONETIME ONE Stop: 01/15/21 19:54 Last Admin: 01/15/21 20:24 Dose: 250 mls/hr Documented by: Magnesium Sulfate (Magnesium Sulfate In Water 2 Gm/50 Ml) 2 gm in 50 mls @ 50 mls/hr IV ONETIME ONE Stop: 01/15/21 23:22 Last Admin: 01/15/21 23:39 Dose: 50 mls/hr Documented by: Ketorolac Tromethamine (Ketorolac 30 Mg/Ml Sdv) 30 mg IVPUSH ONETIME ONE Stop: 01/15/21 18:50 Last Admin: 01/15/21 19:35 Dose: 30 mg Documented by: Potassium Chloride (Potassium Chloride 20 Meq Tab.Er) 40 meq PO ONETIME ONE Stop: 01/15/21 22:24 Last Admin: 01/15/21 23:38 Dose: 40 meq Documented by: Sodium Chloride (Sodium Chloride 0.9% 2.5 Ml Syringe) 2.5 ml FLUSH ASDIRECTED PRN PRN Reason: Keep Vein Open Last Admin: 01/15/21 18:58 Dose: 2.5 ml Documented by: Sodium Chloride (Sodium Chloride 0.9% 10 Ml Syringe) 10 ml FLUSH ASDIRECTED PRN PRN Reason: Keep Vein Open Last Admin: 01/15/21 18:58 Dose: 10 ml Documented by: - Exam Quality Assessment: Reports: DVT Prophylaxis. Denies: Supplemental Oxygen General: Reports: Alert, Oriented, Cooperative, No Acute Distress Lungs: Reports: Normal Respiratory Effort, Crackles (Fine bibasilar). Denies: Wheezing Cardiovascular: Reports: Regular Rate, Regular Rhythm, No Murmurs. Denies: Tachycardia GI/Abdominal Exam: Normal Bowel Sounds, Soft, Non-Tender Back Exam: Reports: Normal Inspection, Full Range of Motion Extremities: Normal Inspection, Normal Range of Motion, Non-Tender, No Pedal Edema Skin: Reports: Warm, Dry Neurological: Reports: No New Focal Deficit Psy/Mental Status: Reports: Alert, Normal Affect, Normal Mood
== END 2021-01-17 12:37 | disposition home or self-care (01) | DRG 177 ==
LOC: MW.ED 17:48 → MW.MS 19:57 → OBSVTOIN 01-16 08:21
PROVIDERS: ADMIT Student in an Organized Health Care Education/Training Program; ATTEND Student in an Organized Health Care Education/Training Program
PROC: XW033E5 Introduction of Remdesivir Anti-infective into Peripheral Vein, Percutaneous Approach, New Technology Group 5 (ICD-10-PCS; principal; 2021-01-16)
DX: U07.1 COVID-19 (principal); J96.01 Acute respiratory failure with hypoxia; E83.51 Hypocalcemia; J12.82 Pneumonia due to coronavirus disease 2019; I10 Essential (primary) hypertension; N28.1 Cyst of kidney, acquired; Z79.52 Long term (current) use of systemic steroids; Z79.899 Other long term (current) drug therapy; E87.6 Hypokalemia; E83.42 Hypomagnesemia
CPT/HCPCS: 0240U; 36415; 71045; 80053; 81001; 82248; 83605; 83690; 83735; 84100; 84484; 85025; 87040; 87086; 93005; 96374; 96375; 99284; 93010; 96365; 96372; 99283; A9270-GY; C9113; G0378; J0610; J1100; J1650; J1885; J1956; J3475; J7030; J7050; J8540